=== PATIENT | female | born 1955 | race Caucasian/White ===

== ENCOUNTER 2016-03-04 11:16 | Outpatient (CLI) | payer MEDICARE ==
--- NOTE | 2016-03-04 18:50 | RAD ---
ACUTE ABDOMEN SERIES: Date: 03/04/16 Supine and erect films show no free air beneath the diaphragm. The gas pattern is nonspecific, showi ng no dilated bowel. There do appear to be fluid-filled loops of small bowel present. Numerous pelvi c calcifications are present which are most likely phleboliths. There appears to have been a prior c holecystectomy. Lumbar scoliosis convex right was present. A chest film in the series is compared with the 04/03/09 chest x-ray. Heart is normal in size and th e lungs are clear. Streaking near the cardiac apex may be scarring or fat pad and has been seen befo re. IMPRESSION: Nonspecific abdominal findings. POS: HOME
== END 2016-03-04 11:17 | disposition home or self-care (01) ==
LOC: BURRAD 11:16
PROVIDERS: ATTEND Family Medicine
DX: R10.13 Epigastric pain (principal)
CPT/HCPCS: 74022

== ENCOUNTER 2016-03-04 13:35 | Outpatient (CLI) | payer MEDICARE ==
[2016-03-04 14:41] LABS: ALT (SGPT) 18 U/L (0-55); AST (SGOT) 16 U/L (5-34); Alkaline Phosphatase 71 U/L (40-150); Anion Gap 14 mmol/L (10-20); BUN (Urea Nitrogen) 15 mg/dL (9.8-20.1); Bilirubin, Total 0.5 mg/dL (0.2-1.2); Calc. Creatinine Clearance 0 mL/min (70-130); Calcium 9.1 mg/dL (7.8-10.44); Carbon Dioxide 21 mmol/L (22-29); Chloride 111 mmol/L (98-107); Estimated GFR-MDRD 39; Globulin 2.5 g/dL (2.4-3.5); Lipase 23 U/L (8-78); Protein, Total 6.7 g/dL (6.0-8.3)
== END 2016-03-04 13:36 | disposition home or self-care (01) ==
LOC: HPCALD 13:35
PROVIDERS: ATTEND Family Medicine
DX: R10.13 Epigastric pain (principal)
CPT/HCPCS: 36415; 80053; 83690

== ENCOUNTER 2016-08-04 10:48 | Emergency (ER) | payer MEDICARE ==
[2016-08-04] MEDS ORDERED: Ketorolac Tromethamine 30 MG/ML VIAL ONE (11:22)
[2016-08-04] MEDS ORDERED: Ondansetron HCl/PF 4 MG/2 ML Vial ONE (11:54)
== END 2016-08-04 12:20 | disposition home or self-care (01) ==
LOC: BURERS 10:48
DX: B34.9 Viral infection, unspecified (principal); J44.9 Chronic obstructive pulmonary disease, unspecified; F17.210 Nicotine dependence, cigarettes, uncomplicated; Z79.899 Other long term (current) drug therapy
CPT/HCPCS: 96361; 96374; 96375; J1885; J2405

== ENCOUNTER 2016-08-09 14:35 | Outpatient (CLI) | payer MEDICARE | END 2016-08-09 14:36 | disposition home or self-care (01) | LOC: HPCALD 14:35 | PROVIDERS: ATTEND Family Medicine | DX: N30.01 Acute cystitis with hematuria (principal) | CPT/HCPCS: 36415; 87086 ==

== ENCOUNTER 2016-08-15 14:45 | Outpatient (CLI) | payer MEDICARE ==
--- NOTE | 2016-08-16 07:43 | RAD ---
CHEST TWO VIEWS 08/15/16 Consolidation is present in the anterior basal portion of the right lower lobe consistent with pneum onia. The left lung is clear. The heart is normal in size. There are no large effusions. This is a n ew finding compared to the February 2016 study. IMPRESSION: Right lower lobe opacity most consistent with pneumonia. Repeat chest x-ray to show complete clearin g is mandatory. Code T POS: HOME
== END 2016-08-15 14:46 | disposition home or self-care (01) ==
LOC: BURRAD 14:45
PROVIDERS: ATTEND Family Medicine
DX: R05 Cough (principal); R91.8 Other nonspecific abnormal finding of lung field
CPT/HCPCS: 71020

== ENCOUNTER 2016-08-15 15:28 | Outpatient (CLI) | payer MEDICARE ==
[2016-08-15 15:42] LABS: #Basophils 0.1 thou/uL (0.0-0.2); #Eosinphils 0.2 thou/uL (0.0-0.7); #Lymphocytes 2.4 thou/uL (1.20-3.40); #Monocytes 0.6 thou/uL (0.11-0.59); #Neutrophils 7.9 thou/uL (1.40-6.50); %Basophils 0.8 % (0.0-1.0); %Eosinophils 1.4 % (0.0-10.0); %Lymphocytes 21.3 % (21.0-51.0); %Monocytes 5.4 % (0.0-10.0); %Neutrophils 71.2 % (42.0-75.0); Hemoglobin 12.5 g/dL (12.0-16.0); Mean Corpuscular HGB CONC 33.9 g/dL (32.0-36.0); Mean Corpuscular Volume 85.6 fl (81.0-99.0); Mean Platelet Volume 6.7 fL (7.4-10.4); Platelet Count 484 thou/uL (130-400); RBC Distribution Width 12.1 % (11.5-14.5); Red Blood Cell (RBC) Count 4.31 mill/uL (4.20-5.40); White Blood Cell (WBC) Count 11.1 thou/uL (4.8-10.8)
[2016-08-15 15:51] LABS: MONO NEGATIVE CONTROL ZONE White (Negative) (White); MONO POSITIVE CONTROL Pink Line (Positive) (PINK/RED); Mononucleosis NEGATIVE (NEGATIVE)
[2016-08-15 16:01] LABS: ALT (SGPT) 67 U/L (8-55); AST (SGOT) 26 U/L (5-34); Albumin 3.8 g/dL (3.5-5.0); Alkaline Phosphatase 85 U/L (40-150); Anion Gap 16 mmol/L (10-20); BUN (Urea Nitrogen) 12 mg/dL (9.8-20.1); Bilirubin, Total 0.2 mg/dL (0.2-1.2); Calc. Creatinine Clearance 0 mL/min (70-130); Calcium 9.4 mg/dL (7.8-10.44); Carbon Dioxide 23 mmol/L (22-29); Chloride 109 mmol/L (98-107); Estimated GFR-MDRD 51; Glucose 86 mg/dL (70-105); Potassium 4.2 mmol/L (3.5-5.1); Protein, Total 6.8 g/dL (6.0-8.3); Sodium 144 mmol/L (136-145)
== END 2016-08-15 15:29 | disposition home or self-care (01) ==
LOC: HPCALD 15:28
PROVIDERS: ATTEND Family Medicine
DX: B37.0 Candidal stomatitis (principal); R51 Headache; R11.0 Nausea; K14.0 Glossitis
CPT/HCPCS: 36415; 80053; 82607; 85025; 86308

== ENCOUNTER 2016-09-09 13:49 | Outpatient (CLI) | payer MEDICARE ==
--- NOTE | 2016-09-09 20:10 | RAD ---
CHEST TWO VIEWS 09/09/16 Comparison is made with the prior study of 08/15/16. The patchy rounded opacity in the right lower lobe that was thought to be pneumonia has almost resol milagros. There is a small amount of residual remaining that is best seen on the lateral view along the m ajor fissure. It might be best to get a final followup PA and lateral view in one to two months to a ssure complete clearing. The progress over time has been significant and is encouraging, however. Th ere are no new areas of opacity or concern. No effusions are seen. There is no vascular congestion. The heart size is normal. Faint calcification is seen in the aortic arch. IMPRESSION: Right lower lobe pneumonia, nearly resolved. One more followup in one to two months would be preferr ed. POS: HOME
== END 2016-09-09 13:50 | disposition home or self-care (01) ==
LOC: BURRAD 13:49
PROVIDERS: ATTEND Family Medicine
DX: J18.9 Pneumonia, unspecified organism (principal)
CPT/HCPCS: 71020

== ENCOUNTER 2016-09-12 09:45 | Outpatient (CLI) | payer MEDICARE ==
[2016-09-12 10:45] LABS: #Basophils 0.1 thou/uL (0.0-0.2); #Eosinphils 0.3 thou/uL (0.0-0.7); #Lymphocytes 3.1 thou/uL (1.20-3.40); #Monocytes 0.6 thou/uL (0.11-0.59); #Neutrophils 3.7 thou/uL (1.40-6.50); %Basophils 1.2 % (0.0-1.0); %Eosinophils 3.8 % (0.0-10.0); %Lymphocytes 40.2 % (21.0-51.0); %Monocytes 7.4 % (0.0-10.0); %Neutrophils 47.4 % (42.0-75.0); Hemoglobin 14.3 g/dL (12.0-16.0); Mean Corpuscular HGB CONC 33.9 g/dL (32.0-36.0); Mean Corpuscular Hemoglobin 28.9 pg (27.0-31.0); Mean Corpuscular Volume 85.3 fl (81.0-99.0); Mean Platelet Volume 7.4 fL (7.4-10.4); Platelet Count 181 thou/uL (130-400); RBC Distribution Width 13.1 % (11.5-14.5); Red Blood Cell (RBC) Count 4.94 mill/uL (4.20-5.40); White Blood Cell (WBC) Count 7.7 thou/uL (4.8-10.8)
[2016-09-12 11:01] LABS: ALT (SGPT) 25 U/L (8-55); AST (SGOT) 19 U/L (5-34); Albumin 4.3 g/dL (3.5-5.0); Alkaline Phosphatase 85 U/L (40-150); Bilirubin, Direct 0.2 mg/dL (0.1-0.3); Bilirubin, Total 0.4 mg/dL (0.2-1.2); Protein, Total 7.2 g/dL (6.0-8.3)
== END 2016-09-12 09:46 ==
LOC: HPCALD 09:45
PROVIDERS: ATTEND Family Medicine
DX: R74.0 Nonspecific elevation of levels of transaminase and lactic acid dehydrogenase [LDH] (principal); D72.829 Elevated white blood cell count, unspecified; R63.5 Abnormal weight gain
CPT/HCPCS: 36415; 80076; 84443; 85025

== ENCOUNTER 2016-10-07 13:54 | Outpatient (CLI) | payer MEDICARE ==
--- NOTE | 2016-10-07 20:24 | RAD ---
CHEST TWO VIEWS 10/07/16 Comparison is made with the 09/09/16 study. The heart is normal in size and the lungs are currently clear. No acute infiltrate or effusion was i ndicated. There is a little residual streaking along the major fissure on the lateral view that is i mproved since the prior study. The trachea is midline. IMPRESSION: No acute findings. Improvement of streaking along the major fissure. POS: HOME
== END 2016-10-07 13:55 | disposition home or self-care (01) ==
LOC: BURRAD 13:54
PROVIDERS: ATTEND Family Medicine
DX: J18.9 Pneumonia, unspecified organism (principal)
CPT/HCPCS: 71020

== ENCOUNTER 2016-11-24 14:17 | Emergency (ER) | payer MEDICARE | END 2016-11-24 14:47 | disposition home or self-care (01) | LOC: BURERS 14:17 | DX: K03.81 Cracked tooth (principal); K02.9 Dental caries, unspecified; M81.0 Age-related osteoporosis without current pathological fracture; M51.06 Intervertebral disc disorders with myelopathy, lumbar region; J44.9 Chronic obstructive pulmonary disease, unspecified; M06.9 Rheumatoid arthritis, unspecified; F31.9 Bipolar disorder, unspecified; E53.9 Vitamin B deficiency, unspecified; F17.210 Nicotine dependence, cigarettes, uncomplicated | CPT/HCPCS: 99282 ==

== ENCOUNTER 2018-05-17 10:39 | Outpatient (CLI) | payer MEDICARE ==
--- NOTE | 2018-05-17 21:41 | RAD ---
CHEST TWO VIEWS: 05/17/18 Comparison is made with the 04/05/18 study from [facility]. COPD is present with flattening of the diaphragm as usual. No lobar consolidation or effusion was see n. A little streaking near the cardiac apex is probably just some lingular scarring. IMPRESSION: COPD with no acute finding. POS: HOME
== END 2018-05-17 10:40 | disposition home or self-care (01) ==
LOC: BURRAD 10:39
PROVIDERS: ATTEND Nurse Practitioner Family
DX: J44.1 Chronic obstructive pulmonary disease with (acute) exacerbation (principal)
CPT/HCPCS: 71046

== ENCOUNTER 2018-10-11 09:28 | Outpatient (CLI) | payer MEDICARE ==
--- NOTE | 2018-10-11 21:07 | CT ---
CT OF THE CHEST WITHOUT CONTRAST: 10/11/18 COMPARISON: Comparison was made with a prior CT angio of the chest from 12/13/13. While this exam was ordered with IV contrast, her extremely low GFR precluded it from being given, th us, this was a noncontrast scan. I do not feel anything significant was lost by doing so. Emphysematous changes are present throughout the lungs bilaterally consisting of small blebs and bull ae. These were present in 2013. Changes over the interval are only minimal. There was no evidence of mass in the lungs themselves or the mediastinum. No effusions are present. There is no sign of medias tinal adenopathy. A small hiatal hernia was noted. The visible portions of the upper abdomen were unremarkable within t he limitations of a noncontrast study. No adrenal masses were seen. IMPRESSION: Diffuse emphysematous changes throughout the lungs. No focal pathology of concern was appreciated. POS: HOME
--- NOTE | 2018-10-15 13:10 | ULT ---
ABDOMINAL ULTRASOUND: Date: 10/11/18 Note: This exam was not submitted for reading to me until 10/15/18 due to technical factors. Ultrasonography of the abdomen shows the liver to be perhaps upper normal in size, measuring 17 cm in oblique sagittal dimension. No space-occupying disease or dilated ducts were seen. A tiny 7 mm cyst is seen in the left lobe, which was present on a prior CT scan. It has not really changed over time. The gallbladder has been surgically removed. The common bile duct is 8-9 mm in caliber, which is norm al for a post cholecystectomy patient. No pancreatic abnormality seen. Aorta and inferior vena cava u nremarkable. The spleen is normal in size. The right kidney was slightly smaller than the left, measuring 7.8 cm in length, versus 9.2 cm on the left. No mass, hydronephrosis, or other focal pathology was seen in either kidney, however. Cortex w as normal in each kidney. IMPRESSION: Slightly prominent hepatic size, but no acute findings. POS: HOME
== END 2018-10-11 09:29 | disposition home or self-care (01) ==
LOC: BURCT 09:28
PROVIDERS: ATTEND Nurse Practitioner Family
DX: R10.12 Left upper quadrant pain (principal); F17.200 Nicotine dependence, unspecified, uncomplicated
CPT/HCPCS: 71250; 76700

== ENCOUNTER 2018-12-28 16:49 | Inpatient (IN) | payer MEDICARE ==
[2018-12-28] MEDS ORDERED: methylPREDNISolone Sod Succ/PF 125 MG/2 ML VIAL ONE ×2 (17:13→17:20)
--- NOTE | 2018-12-28 17:16 | RAD ---
EXAM: CHEST ONE VIEW HISTORY: Dyspnea COMPARISON: 04/05/2018 FINDINGS: The cardiac silhouette and pulmonary vasculature is within normal limits. Linear densities are seen a t the left lung base probably related to atelectasis. However, developing area of pneumonitis cannot be entirely excluded. There is no consolidation or pleural fluid identified. The right lung is clear. Postsurgical changes lower cervical spine are noted. Vascular calcifications are seen in the thoracic aorta. IMPRESSION: Linear densities left lung base most likely related to atelectasis. However, developing infiltrate/pn eumonitis cannot be excluded. Follow-up chest x-ray is recommended as clinically indicated.
[2018-12-28 17:29] LABS: ALT (SGPT) 16 U/L (8-55); AST (SGOT) 19 U/L (5-34); Alkaline Phosphatase 82 U/L (40-110); Anion Gap 15 mmol/L (10-20); BUN (Urea Nitrogen) 13 mg/dL (9.8-20.1); Bilirubin, Total 0.4 mg/dL (0.2-1.2); Calc. Creatinine Clearance 0 mL/min (70-130); Calcium 9.4 mg/dL (7.8-10.44); Carbon Dioxide 24 mmol/L (23-31); Chloride 107 mmol/L (98-107); Estimated GFR-MDRD 43; Globulin 3.4 g/dL (2.4-3.5); Glucose 102 mg/dL (80-115); Potassium 3.4 mmol/L (3.5-5.1); Protein, Total 7.4 g/dL (6.0-8.3); Sodium 143 mmol/L (136-145)
[2018-12-28 17:36] LABS: #Basophils 0.1 thou/uL (0.0-0.2); #Eosinphils 0.1 thou/uL (0.0-0.7); #Lymphocytes 1.2 thou/uL (1.20-3.40); #Monocytes 0.9 thou/uL (0.11-0.59); #Neutrophils 11.4 thou/uL (1.40-6.50); %Basophils 0.7 % (0.0-1.0); %Eosinophils 0.5 % (0.0-10.0); %Lymphocytes 8.6 % (21.0-51.0); %Monocytes 6.9 % (0.0-10.0); %Neutrophils 83.3 % (42.0-75.0); Hemoglobin 12.7 g/dL (12.0-16.0); Mean Corpuscular HGB CONC 32.2 g/dL (32.0-36.0); Mean Corpuscular Hemoglobin 27.9 pg (27.0-31.0); Mean Corpuscular Volume 86.8 fL (78.0-98.0); Mean Platelet Volume 9.5 fL (7.4-10.4); Platelet Count 230 thou/uL (130-400); RBC Distribution Width 13.3 % (11.5-14.5); Red Blood Cell (RBC) Count 4.55 mill/uL (4.20-5.40); White Blood Cell (WBC) Count 13.7 thou/uL (4.8-10.8)
[2018-12-28] MEDS ORDERED: cefTRIAXone\\ROCEPHIN 1 GM VIAL ONE (17:48)
[2018-12-28] MEDS ORDERED: Acetaminophen 325 MG TAB PO PRN (19:14)
[2018-12-28] MEDS ORDERED: Ondansetron PF 4 MG/2 ML Vial IVP PRN (19:14)
[2018-12-28] MEDS ORDERED: Bacteriostatic Water 30 ML VIAL FS PRN (19:15)
[2018-12-28] MEDS: traMADol HCl 50 MG TAB PO PRN (20:26)
[2018-12-28] MEDS: Benzonatate 100 MG CAP PO SCH (20:28)
[2018-12-28] MEDS ORDERED: traMADol HCl 50 MG TAB PO PRN (21:23)
[2018-12-28] MEDS ORDERED: Mometasone/Formoterol 60 PUFF AER INH PRN (21:23)
[2018-12-28] MEDS ORDERED: clonazePAM 1 MG TAB PO SCH (22:15)
[2018-12-28] MEDS ORDERED: Mirtazapine 15 MG TAB PO SCH (22:30)
[2018-12-28] MEDS ORDERED: Baclofen 10 MG TAB PO SCH (22:30)
[2018-12-29] MEDS: traMADol HCl 50 MG TAB PO PRN ×2 (05:14→12:54)
[2018-12-29 05:21] LABS: #Lymphocytes 0.7 thou/uL (1.20-3.40); #Monocytes 0.3 thou/uL (0.11-0.59); #Neutrophils 10.2 thou/uL (1.40-6.50); %Basophils 0.1 % (0.0-1.0); %Lymphocytes 6.5 % (21.0-51.0); %Monocytes 2.3 % (0.0-10.0); Hemoglobin 11.1 g/dL (12.0-16.0); Mean Corpuscular HGB CONC 31.5 g/dL (32.0-36.0); Mean Corpuscular Hemoglobin 27.1 pg (27.0-31.0); Mean Corpuscular Volume 86.1 fL (78.0-98.0); Mean Platelet Volume 8.4 fL (7.4-10.4); Platelet Count 208 thou/uL (130-400); RBC Distribution Width 13.2 % (11.5-14.5); Red Blood Cell (RBC) Count 4.11 mill/uL (4.20-5.40); White Blood Cell (WBC) Count 11.2 thou/uL (4.8-10.8)
[2018-12-29 05:34] LABS: ALT (SGPT) 14 U/L (8-55); AST (SGOT) 15 U/L (5-34); Albumin 3.4 g/dL (3.4-4.8); Alkaline Phosphatase 75 U/L (40-110); Anion Gap 12 mmol/L (10-20); BUN (Urea Nitrogen) 15 mg/dL (9.8-20.1); Bilirubin, Total 0.2 mg/dL (0.2-1.2); Calc. Creatinine Clearance 62 mL/min (70-130); Carbon Dioxide 22 mmol/L (23-31); Chloride 111 mmol/L (98-107); Estimated GFR-MDRD 51; Glucose 139 mg/dL (80-115); Potassium 3.7 mmol/L (3.5-5.1); Protein, Total 6.4 g/dL (6.0-8.3); Sodium 141 mmol/L (136-145)
[2018-12-29] MEDS ORDERED: Benzonatate 100 MG CAP PO SCH (09:00)
[2018-12-29] MEDS ORDERED: methylPREDNISolone Sod Succ/PF 125 MG/2 ML VIAL IVP SCH (09:00)
[2018-12-29] MEDS ORDERED: Famotidine 20 MG TAB PO SCH (09:00)
[2018-12-29] MEDS: methylPREDNISolone Sod Succ/PF 125 MG/2 ML VIAL IVP SCH (09:10)
[2018-12-29] MEDS: Benzonatate 100 MG CAP PO SCH ×3 (09:18→21:30)
[2018-12-29] MEDS: Saccharomyces boulardii 250 MG CAP PO SCH (09:18)
[2018-12-29] MEDS: cefTRIAXone\\ROCEPHIN 1 GM in Sodium Chloride 0.9% 100 ML IVPB SCH (09:28)
[2018-12-29] MEDS: Azithromycin 500 MG in Sodium Chloride 0.9% 250 ML 250 ML IVPB SCH (10:58)
[2018-12-29] MEDS: Nicotine 21 MG PATCH TD SCH (10:59)
[2018-12-29] MEDS: Guaifenesin DM 100-10/5 ML UDCUP PO PRN ×2 (12:46→17:30)
[2018-12-29] MEDS: Mometasone/Formoterol 60 PUFF AER INH SCH (12:47)
[2018-12-29] MEDS: clonazePAM 1 MG TAB PO SCH (21:29)
[2018-12-29] MEDS: Mirtazapine 15 MG TAB PO SCH (21:30)
[2018-12-29] MEDS: Baclofen 10 MG TAB PO SCH (21:31)
[2018-12-30] MEDS: Guaifenesin DM 100-10/5 ML UDCUP PO PRN ×3 (01:09→20:59)
[2018-12-30 05:37] LABS: #Basophils 0.1 thou/uL (0.0-0.2); #Monocytes 0.7 thou/uL (0.11-0.59); #Neutrophils 9.6 thou/uL (1.40-6.50); %Basophils 0.5 % (0.0-1.0); %Eosinophils 0.1 % (0.0-10.0); %Lymphocytes 15.9 % (21.0-51.0); %Monocytes 5.8 % (0.0-10.0); %Neutrophils 77.7 % (42.0-75.0); Hemoglobin 10.3 g/dL (12.0-16.0); Mean Corpuscular HGB CONC 31.2 g/dL (32.0-36.0); Mean Corpuscular Hemoglobin 27.1 pg (27.0-31.0); Mean Corpuscular Volume 86.7 fL (78.0-98.0); Mean Platelet Volume 7.8 fL (7.4-10.4); Platelet Count 234 thou/uL (130-400); RBC Distribution Width 13.1 % (11.5-14.5); Red Blood Cell (RBC) Count 3.82 mill/uL (4.20-5.40); White Blood Cell (WBC) Count 12.4 thou/uL (4.8-10.8)
[2018-12-30 05:48] LABS: ALT (SGPT) 16 U/L (8-55); AST (SGOT) 14 U/L (5-34); Albumin 3.2 g/dL (3.4-4.8); Alkaline Phosphatase 65 U/L (40-110); Anion Gap 11 mmol/L (10-20); BUN (Urea Nitrogen) 18 mg/dL (9.8-20.1); Bilirubin, Total Less than 0.2 mg/dL (0.2-1.2); Calc. Creatinine Clearance 59 mL/min (70-130); Calcium 8.7 mg/dL (7.8-10.44); Carbon Dioxide 25 mmol/L (23-31); Chloride 112 mmol/L (98-107); Estimated GFR-MDRD 49; Globulin 2.7 g/dL (2.4-3.5); Glucose 87 mg/dL (80-115); Potassium 3.3 mmol/L (3.5-5.1); Protein, Total 5.9 g/dL (6.0-8.3); Sodium 145 mmol/L (136-145)
[2018-12-30] MEDS: Benzonatate 100 MG CAP PO SCH ×4 (06:25→21:06)
[2018-12-30] MEDS: methylPREDNISolone Sod Succ/PF 125 MG/2 ML VIAL IVP SCH (08:20)
[2018-12-30] MEDS: traMADol HCl 50 MG TAB PO PRN ×2 (08:28→20:57)
[2018-12-30] MEDS: cefTRIAXone\\ROCEPHIN 1 GM in Sodium Chloride 0.9% 100 ML IVPB SCH (08:32)
[2018-12-30] MEDS: Saccharomyces boulardii 250 MG CAP PO SCH (08:32)
[2018-12-30] MEDS: Nicotine 21 MG PATCH TD SCH (10:32)
[2018-12-30] MEDS: Azithromycin 500 MG in Sodium Chloride 0.9% 250 ML 250 ML IVPB SCH (10:32)
[2018-12-30] MEDS: Mometasone/Formoterol 60 PUFF AER INH SCH ×2 (10:39→21:01)
[2018-12-30] MEDS: Ondansetron ODT 4 MG TAB SL PRN (11:54)
--- NOTE | 2018-12-30 14:25 | RAD ---
RADIOGRAPH CHEST 2 VIEW: DATE: 12/30/2018 HISTORY: 63-year-old female with "pneumonia." Dyspnea. FINDINGS: There is hyperinflation of the lungs, consistent with COPD. There is no evidence of airspace density, pulmonary edema, cardiomegaly, pleural effusion, or pneumothorax. IMPRESSION: 1) No acute cardiopulmonary findings. 2) emphysema.
--- NOTE | 2018-12-30 16:23 | HP ---
CHIEF COMPLAINT: Shortness of breath with cough. HISTORY OF PRESENT ILLNESS: The patient is a 63-year-old white female with a history of COPD, non-oxygen dependent, but continues to smoke, who presents to emergency room on day of admission with 3 to 4 days history of progressive shortness of breath with wheezing, cough, malaise, and decreased appetite. The patient reports for 24 hours prior to presentation to the emergency room, she began developing increasing fevers up to 101.2 with inability to ambulate or talk secondary to shortness of breath with recurrent cough. She said that the wheezing got worse. She took her nebulizers as prescribed, but continued to have progressive worsening of symptoms and thus presents to the emergency room. She says that cough is constant, mainly dry, occasionally productive yellow dark sputum, associated chest pain with the cough only, and had never been hospitalized for COPD exacerbations in the past. PAST MEDICAL HISTORY: The patient reports a history of fibromyalgia with chronic pain, history of lumbar disk disease with myelopathy. The patient reports a history of COPD and a history of osteoporosis. The patient believes she has a history of hepatitis B diagnosed in the past. The patient has a history of depression, bipolar type 1, currently controlled with current medications. PAST SURGICAL HISTORY: Includes cholecystectomy, hysterectomy, history of orthopedic surgery to the left wrist, and a laparoscopy in 2017. The patient has a history of back surgery. FAMILY HISTORY: Positive for a father, who of end-stage emphysema. SOCIAL HISTORY: The patient reports a half-a-pack to 1 pack smoking per day. Denies any significant alcohol or drug use. She is normally independent in all activities of daily living. REVIEW OF SYSTEMS: The patient reports some sweats with her recent increased shortness of breath and cough for the last 3 to 4 days. She has a sore throat secondary to the cough. Denies any visual changes. Denies any vomiting. Has had decreased appetite with some loose stools in the last couple of days. Denies any dysuria, hematuria, or change in urinary frequency. The patient has chronic back pain, which is stable. She also reports diffuse joint aches and pains consistent with her fibromyalgia. This is currently at baseline. The patient denies any focal weakness, numbness, or paresthesias. The patient denies any recent significant weight loss or weight gain. No recent rashes reported by the patient. The patient reports depression is currently controlled and stable. PHYSICAL EXAMINATION: GENERAL: White female, in obvious shortness of breath secondary to wheezing and cough. VITAL SIGNS: Temperature was 99.6, O2 saturation was 93% on 2 L nasal cannula, pulse was 98, respiratory rate was 30, blood pressure was 104/76. HEENT: Atraumatic, normocephalic. Extraocular movements are intact. Pupils are equal, round, reactive to light and accommodation. Oropharynx; mucous membranes are moist. NECK: Supple. No masses palpated. CHEST: Decreased breath sounds bilaterally with expiratory wheezes, worse on the left than right lung field. HEART: rhythm. ABDOMEN: Soft, nontender, nondistended. No masses palpated. EXTREMITIES: No cyanosis, clubbing, or edema. LABORATORY AND DIAGNOSTIC DATA: EKG showed no significant findings. Chest x-ray showed infiltrate in the left lower lobe consistent with pneumonia. Labs were significant for an elevated white blood count 13,200. The patient's lactate was normal. ASSESSMENT AND PLAN: 1. Pneumonia, left lower lobe. The patient is at high risk for worsening with her COPD. Currently, she is oxygen dependent. She had an elevated white blood count, anorexia with decreased appetite, and reports fevers that are greater than 101 in the last 24 hours. The patient meets inpatient criteria for IV antibiotics, frequent neb treatments, and oxygen per nasal cannula. We will continue the patient on Rocephin. We will add Zithromax. Continue IV steroids and neb treatments as appropriate. 2. Chronic obstructive pulmonary disease exacerbation secondary to #1 above. We will treat as above with steroids, frequent neb treatments plus albuterol for breakthrough wheezing and continue to assess. Strongly recommend smoking cessation. We will start the patient on nicotine patch. 3. Fibromyalgia. We will continue the patient on current medications. 4. Bipolar 1 depression. Continue the patient on her antidepressants. 5. History of smoking. Again, smoking cessation was recommended. The patient will start her on a nicotine patch. 6. Code status: The patient wishes to be full code. Job ID: [id number]
[2018-12-30] MEDS: Mirtazapine 15 MG TAB PO SCH (20:55)
[2018-12-30] MEDS: clonazePAM 1 MG TAB PO SCH (20:55)
[2018-12-30] MEDS: Baclofen 10 MG TAB PO SCH (20:56)
[2018-12-30] MEDS: Albuterol Sulfate 1.25 MG/3 ML NEB NEB PRN (23:33)
[2018-12-31] MEDS: Guaifenesin DM 100-10/5 ML UDCUP PO PRN (01:41)
[2018-12-31 05:42] VITALS: BMI 27.6
[2018-12-31] MEDS: Benzonatate 100 MG CAP PO SCH ×3 (05:49→21:24)
[2018-12-31] MEDS: traMADol HCl 50 MG TAB PO PRN ×2 (09:05→21:30)
[2018-12-31] MEDS: methylPREDNISolone Sod Succ/PF 125 MG/2 ML VIAL IVP SCH (09:08)
[2018-12-31] MEDS: cefTRIAXone\\ROCEPHIN 1 GM in Sodium Chloride 0.9% 100 ML IVPB SCH (09:08)
[2018-12-31] MEDS: Saccharomyces boulardii 250 MG CAP PO SCH (09:09)
[2018-12-31] MEDS: Albuterol Sulfate 1.25 MG/3 ML NEB NEB PRN (09:56)
[2018-12-31] MEDS: Mometasone/Formoterol 60 PUFF AER INH SCH (09:57)
[2018-12-31] MEDS: Nicotine 21 MG PATCH TD SCH (10:58)
[2018-12-31] MEDS: Azithromycin 500 MG in Sodium Chloride 0.9% 250 ML 250 ML IVPB SCH (10:58)
[2018-12-31] MEDS: Ondansetron ODT 4 MG TAB SL PRN (11:27)
[2018-12-31] MEDS: Mirtazapine 15 MG TAB PO SCH (21:24)
[2018-12-31] MEDS: clonazePAM 1 MG TAB PO SCH (21:25)
[2018-12-31] MEDS: Baclofen 10 MG TAB PO SCH (21:25)
[2018-12-31] MEDS: guaiFENesin ER 600 MG TAB PO SCH (21:26)
[2019-01-01] MEDS: Albuterol Sulfate 1.25 MG/3 ML NEB NEB PRN (04:08)
[2019-01-01 05:33] LABS: #Lymphocytes 2.4 thou/uL (1.20-3.40); #Monocytes 0.6 thou/uL (0.11-0.59); #Neutrophils 4.3 thou/uL (1.40-6.50); %Basophils 0.7 % (0.0-1.0); %Eosinophils 0.5 % (0.0-10.0); %Lymphocytes 32.5 % (21.0-51.0); %Monocytes 8.3 % (0.0-10.0); %Neutrophils 58.1 % (42.0-75.0); Hemoglobin 10.8 g/dL (12.0-16.0); Mean Corpuscular HGB CONC 30.8 g/dL (32.0-36.0); Mean Corpuscular Volume 87.7 fL (78.0-98.0); Mean Platelet Volume 7.2 fL (7.4-10.4); Platelet Count 284 thou/uL (130-400); RBC Distribution Width 13.5 % (11.5-14.5); Red Blood Cell (RBC) Count 4.01 mill/uL (4.20-5.40); White Blood Cell (WBC) Count 7.4 thou/uL (4.8-10.8)
[2019-01-01 05:45] LABS: Anion Gap 14 mmol/L (10-20); BUN (Urea Nitrogen) 17 mg/dL (9.8-20.1); Calc. Creatinine Clearance 61 mL/min (70-130); Carbon Dioxide 24 mmol/L (23-31); Chloride 109 mmol/L (98-107); Estimated GFR-MDRD 46; Glucose 108 mg/dL (80-115); Potassium 3.1 mmol/L (3.5-5.1); Sodium 144 mmol/L (136-145)
[2019-01-01] MEDS: traMADol HCl 50 MG TAB PO PRN ×3 (06:10→18:52)
[2019-01-01] MEDS: Benzonatate 100 MG CAP PO SCH ×2 (06:10→14:36)
[2019-01-01] MEDS ORDERED: predniSONE 20 MG TAB PO SCH (08:00)
[2019-01-01] MEDS: cefTRIAXone\\ROCEPHIN 1 GM in Sodium Chloride 0.9% 100 ML IVPB SCH (08:11)
[2019-01-01] MEDS: guaiFENesin ER 600 MG TAB PO SCH ×2 (08:14→18:51)
[2019-01-01] MEDS: Saccharomyces boulardii 250 MG CAP PO SCH (08:16)
[2019-01-01] MEDS: Azithromycin 500 MG in Sodium Chloride 0.9% 250 ML 250 ML IVPB SCH (10:09)
[2019-01-01] MEDS: Mometasone/Formoterol 60 PUFF AER INH SCH (10:16)
[2019-01-01] MEDS: Nicotine 21 MG PATCH TD SCH (10:19)
[2019-01-01] MEDS: Ondansetron ODT 4 MG TAB SL PRN (10:54)
[2019-01-01 17:25] VITALS: BP 106/73; TEMP 98.8
--- NOTE | 2019-01-01 20:01 | DIS ---
DATE OF ADMISSION: 12/28/2018 DATE OF DISCHARGE: 01/01/2019 ADMISSION DIAGNOSES: 1. Chronic obstructive pulmonary disease exacerbation with hypoxia without hypercapnia. 2. Community-acquired pneumonia, left lung base. 3. Hypokalemia. 4. Nicotine dependence. 5. History of bipolar disorder. 6. History of fibromyalgia. DISCHARGE DIAGNOSES: 1. Chronic obstructive pulmonary disease exacerbation with hypoxia without hypercapnia. 2. Community-acquired pneumonia, left lung base. 3. Hypokalemia. 4. Nicotine dependence. 5. History of bipolar disorder. 6. History of fibromyalgia. ATTENDING PHYSICIAN: Dr. Lisa Latham, admitted the patient on December 28 and cared for her as the attending on-call until I picked up care on the morning of December 31 as I am her PCP and cared for her throughout the rest of the hospitalization. PROCEDURES: 1. Chest x-ray, December 28, shows linear densities in left lung base, most likely related to atelectasis. However, developing infiltrate, pneumonitis cannot be excluded. 2. Chest x-ray from December 30, 2018, shows no acute cardiopulmonary findings and emphysema. 3. Blood culture x2 negative at 48 hours, and influenza A and B negative. HISTORY AND PHYSICAL: Please see dictated report from Dr. Lisa Latham from the date of admission. HOSPITAL COURSE: Ms. Broderick is a 63-year-old female with past medical history of COPD and nicotine dependence, who was admitted with hypoxia and complaints of persistent cough. She was routinely treated with a combination of Rocephin and Zithromax to cover for possible left lower lobe pneumonia, supportive O2, nebulizer treatments were scheduled 4 times a day with albuterol as needed and O2 was given supportively. She was started on IV Solu-Medrol and this was weaned on her visit to oral prednisone. Gradually the hypoxia is resolved with her treatment and Mucinex was added prior to her discharge, which has significantly improved her ability to expectorate her sputum. She has completed the Zithromax therapy, but has a couple of more days of cephalosporin therapy, so we will send cefdinir for her to complete. She has an old nebulizer unit at home that needs to be replaced, but has nebulizer medicine for it. I have ordered one, Rx written for it. The patient with hypokalemia, that was presumptively secondary to her neb treatments. However, this did persist during her hospitalization, and I am starting her on potassium at discharge. We will check a basic metabolic profile when she comes in for followup in the office in approximately 1 week. The patient with a long smoking history. 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 She really would like to quit on her own if she can and has been advised and counseled regarding the adverse sequela of continued smoking including increase in mortality rate in the context of COPD. The patient with history of chronic fibromyalgia and this was controlled. She will be calling in the morning to the clinic to get a short-term refill on her tramadol as I could not send that over from the hospital this evening as she is currently out. DISPOSITION: Discharged to home. CONDITION: Good. MEDICATIONS: 1. DuoNeb 3 mL nebulized q.i.d. p.r.n. 2. Benzonatate 200 mg p.o. t.i.d. 3. Probiotic one p.o. daily. 4. Baclofen 20 mg p.o. at bedtime. 5. Clonazepam 1 p.o. at bedtime. 6. Tramadol 100 mg p.o. q.6 hours p.r.n. 7. Sertraline 100 mg p.o. daily. 8. Seroquel XR 300 mg two p.o. at bedtime. 9. Protonix 40 mg p.o. daily. 10. Remeron 45 mg p.o. at bedtime. 11. Breo Ellipta one inhalation daily. 12. Prednisone 20 mg taper three p.o. daily x3 days, then two p.o. daily x4 days, then one p.o. daily x3 days, then half p.o. daily x3 days, then stop. 13. Mucinex ER 1200 mg p.o. b.i.d. 14. K-Dur 20 mEq p.o. daily. 15. Cefdinir 300 mg p.o. b.i.d. x2 days, #4. FOLLOWUP: Follow up with Dr. Radha Bishop, PCP, in approximately 7 days. Job ID: [id number]
[2019-01-01] MEDS ORDERED: QUETIAPINE 300 MG PO SCH (21:00)
[2019-01-01] MEDS ORDERED: [UNRECOGNIZED DRUG - OTHER] PO SCH (21:00)
[2019-01-01] MEDS ORDERED: Mometasone/Formoterol 60 PUFF AER INH SCH (21:00)
--- NOTE | 2019-01-03 05:31 | PQF ---
[employer] [place] Ramesh NIKO MERCHANT DO [id number] CLINICAL DOCUMENTATION CLARIFICATION FORM: POST DISCHARGE Addendum to original discharge summary date: ____ Late entry note date: __ DATE:01/03/2019 ATTN: NIKO MERCHANT DO Please exercise your independent, professional judgment in responding to the clarification form. Clinical indicators are provided on the bottom of this form for your review Please check appropriate box(s): [ ] Acute Respiratory Failure: [ ] with Hypoxia[ ] with Hypercapnia [ ] Acute On Chronic Respiratory Failure: [ ] with Hypoxia [ ] with Hypercapnia [ ] Acute Respiratory Failure due to: (etiology) [ ] ARDS (Acute Respiratory Distress Syndrome) [ ] Chronic Respiratory Failure only [ ] with Hypoxia [ ] with Hypercapnia [ ] Hypoxia [ ] Other diagnosis [ ] Unable to determine In addition, please specify: Present on Admission (POA): [ ] Yes [ ] No [ ] Unable to determine For continuity of documentation, please document condition throughout progress notes and discharge summary. Thank You. CLINICAL INDICATORS - SIGNS / SYMPTOMS / LABS Progressive SOB with wheezing, cough, malaise - Documented in H&P on 12/28 by Noa Feliz MD RR 30 - Documented in ED notes pg#2 O2 saturation 88% on room air - Documented in ED notes pg#8 Hypoxia - Documented in DS on 12/28 by NIKO MERCHANT DO RISK FACTORS Former smoker - Documented in ED notes pg#6 Hx of COPD - Documented in ED notes pg#6 Pneumonia left lower lobe - Documented in H&P on 12/28 by Noa Feliz MD COPD exacerbation -Documented in H&P on 12/28 by Noa Feliz MD TREATMENTS: Treated with steroids, frequent neb,plus albuterol - Documented in H&P on 12/28 by Noa Feliz MD Smoking cessation Nasal Cannula [employer] (This form is maintained as a part of the permanent medical record) 2014 [employer]. All Rights Reserved Sang [email or web address] [not provided] MTDD
== END 2019-01-01 18:50 | disposition home or self-care (01) | DRG 190 ==
LOC: BURERS 16:49 → BURMED 18:18 → UNDOADMOB 18:18 → BURMED 23:40 → OBSVTOIN 23:53 → INTOOBSV 23:53
PROVIDERS: ADMIT Family Medicine; ATTEND Family Medicine
DX: J44.1 Chronic obstructive pulmonary disease with (acute) exacerbation (principal); J18.9 Pneumonia, unspecified organism; J98.11 Atelectasis; M51.06 Intervertebral disc disorders with myelopathy, lumbar region; J44.0 Chronic obstructive pulmonary disease with (acute) lower respiratory infection; F17.210 Nicotine dependence, cigarettes, uncomplicated; G89.29 Other chronic pain; M79.7 Fibromyalgia; F31.9 Bipolar disorder, unspecified; R63.0 Anorexia; E87.6 Hypokalemia; R09.02 Hypoxemia; Z90.49 Acquired absence of other specified parts of digestive tract; Z90.710 Acquired absence of both cervix and uterus; Z68.27 Body mass index [BMI] 27.0-27.9, adult; E53.9 Vitamin B deficiency, unspecified
CPT/HCPCS: 36415; 71045; 71046; 80048; 80053; 83605; 83880; 84484; 85025; 87040; 87804; 93005; 94664; 96361; 96374; 96375; J0456; J0696; J2930; J3490; J7050; J7512; J7620; Q0162

== ENCOUNTER 2019-03-03 13:14 | Inpatient (IN) | payer MEDICARE ==
[2019-03-03] MEDS ORDERED: Ondansetron PF 4 MG/2 ML Vial ONE (13:57)
[2019-03-03] MEDS ORDERED: methylPREDNISolone Sod Succ/PF 125 MG/2 ML VIAL ONE (13:57)
[2019-03-03 14:10] LABS: Anion Gap 15 mmol/L (10-20); BUN (Urea Nitrogen) 15 mg/dL (9.8-20.1); Calc. Creatinine Clearance 0 mL/min (70-130); Calcium 9.2 mg/dL (7.8-10.44); Carbon Dioxide 21 mmol/L (23-31); Chloride 105 mmol/L (98-107); Estimated GFR-MDRD 44; Glucose 109 mg/dL (80-115); Potassium 3.1 mmol/L (3.5-5.1); Sodium 138 mmol/L (136-145)
[2019-03-03 14:15] LABS: Band 3 % (5-11); Hemoglobin 12.5 g/dL (12.0-16.0); Lymphocytes 21 % (21-51); MDiff Complete? YES; Mean Corpuscular HGB CONC 32.1 g/dL (32.0-36.0); Mean Platelet Volume 7.7 fL (7.4-10.4); Monocytes 5 % (0-10); Neutrophil 71 % (42-75); Platelet Count 229 thou/uL (130-400); RBC Distribution Width 14.2 % (11.5-14.5); Red Blood Cell (RBC) Count 4.64 mill/uL (4.20-5.40); White Blood Cell (WBC) Count 15.9 thou/uL (4.8-10.8)
[2019-03-03] MEDS ORDERED: Sodium Chloride 0.9% 100 ML ONE (14:24)
[2019-03-03] MEDS ORDERED: Magnesium 2 GM/50 ML BAG (IN WATER) ONE (14:24)
[2019-03-03] MEDS ORDERED: cefTRIAXone\\ROCEPHIN 2 GM VIAL ONE (14:24)
[2019-03-03] MEDS ORDERED: Albuterol Sulfate 1.25 MG/3 ML NEB ONE (14:24)
[2019-03-03] MEDS ORDERED: Azithromycin 250 MG TAB ONE (15:20)
[2019-03-03] MEDS ORDERED: Ondansetron ODT 4 MG TAB ONE (15:20)
[2019-03-03] MEDS ORDERED: Acetaminophen 325 MG TAB PO PRN (17:10)
[2019-03-03] MEDS ORDERED: Ondansetron PF 4 MG/2 ML Vial IVP PRN (17:10)
[2019-03-03] MEDS ORDERED: HYDROcodone/Acetaminophen 5/325 mg Tablet PO PRN (17:10)
[2019-03-03] MEDS ORDERED: Ondansetron ODT 4 MG TAB SL PRN (17:10)
[2019-03-03] MEDS ORDERED: Albuterol Sulfate 2.5 mg/3 ml Neb NEB PRN (17:12)
[2019-03-03] MEDS: HYDROcodone/Acetaminophen 5/325 mg Tablet PO PRN ×2 (17:32→23:24)
[2019-03-03 17:42] VITALS: BMI 26.6
[2019-03-03] MEDS: Dextrose 5 %-0.45 % NaCl 1,000 ML IV SCH (17:51)
[2019-03-03] MEDS ORDERED: Enoxaparin Sodium 40 MG/0.4 ML SYRINGE SC SCH (18:30)
[2019-03-03] MEDS: Nystatin 500,000 UNITS/5 ML UDCUP SSW SCH (20:35)
[2019-03-03] MEDS ORDERED: Vancomycin HCl 1.25 GM in Sodium Chloride 0.9% 250 ML 250 ML IVPB SCH (21:00)
[2019-03-03] MEDS: methylPREDNISolone Sod Succ 40 MG VIAL IVP SCH (21:52)
[2019-03-03] MEDS: Vancomycin HCl 500 MG in Sodium Chloride 0.9% 100 ML IVPB SCH (21:58)
[2019-03-03] MEDS: Vancomycin HCl 750 MG in Sodium Chloride 0.9% 250 ML 250 ML IVPB SCH (21:59)
[2019-03-03] MEDS ORDERED: Hydrocortisone Sod Succ/PF 100 mg/2 ml Vial IVP SCH (22:00)
[2019-03-03] MEDS: Benzonatate 100 MG CAP PO SCH (22:08)
[2019-03-03] MEDS: Mirtazapine 15 MG TAB PO SCH (22:08)
[2019-03-03] MEDS: guaiFENesin ER 600 MG TAB PO SCH (22:09)
[2019-03-03] MEDS: Baclofen 10 MG TAB PO SCH (22:09)
[2019-03-03] MEDS: Oseltamivir 75 MG CAP PO SCH (22:09)
--- NOTE | 2019-03-03 23:21 | RAD ---
AP PORTABLE CHEST: 03/03/2019 1402 HOURS COMPARISON: 12/30/2018 FINDINGS: The heart is normal in size. There is no vascular congestion or edema. There are some infiltrative ch anges in the left lower lobe, near the diaphragm, and probably the right as well. No large effusions are seen but small ones could be present. The upper lobes are relatively clear. IMPRESSION: Small basilar infiltrate, particularly on the left. Early infection is possible. POS: HOME
--- NOTE | 2019-03-04 03:11 | HP ---
PRIMARY CARE PHYSICIAN: Radha Bishop DO CHIEF COMPLAINT: Shortness of breath with intermittent fever. HISTORY OF PRESENT ILLNESS: Ms. Broderick is a 63-year-old white female with COPD with continuous tobacco use, and chronic back pain secondary to fibromyalgia, presents today for worsening shortness of breath with intermittent fever. The patient was being treated for flu-like symptoms since after being exposed with a grandson with influenza A. The patient reports she has been sick last week; however, developed fever last Monday associated with vomiting and diarrhea. She developed chest congestion, tightness and wheezing since . She has been using osda-eua-witfmwv analgesics, Mucinex, and her DuoNeb every 4 hours without any relief. Upon arrival at the ED, she had a blood pressure of 116/78, pulse of 109, RR of 19, temperature of 97.9, O2 saturation was 91% on room air. She had a chest x-ray showing right lower lobe infiltrate and chronic lung changes consistent with COPD. Her labs demonstrated WBC of 15, hemoglobin of 12, hematocrit of 39, platelet count of 229. Comprehensive metabolic panel showed sodium of 138, potassium of 3.1, chloride of 105, carbon dioxide of 21, BUN of 15, creatinine of 1.23 with GFR of 44. Lactic acid was 1.6. BNP of 79. The patient was given Zofran, albuterol and DuoNeb and was started on IV fluids. She was also started on Rocephin 2 g per IV and azithromycin p.o. She also received Solu-Medrol 125 mg per IV. Re-evaluation of the patient noted that she is still having significant shortness of breath and requiring oxygen to maintain sats above 94%, the patient is meeting criteria for hospitalization for treatment of community-acquired pneumonia with COPD exacerbation. PAST MEDICAL HISTORY: 1. COPD. 2. Chronic back pain secondary to degenerative disk disease with myelopathy and fibromyalgia. 3. Osteoporosis. 4. Major depression with bipolar disorder. 5. Dysphagia, pending swallowing study. PAST SURGICAL HISTORY: 1. Cholecystectomy. 2. Hysterectomy. 3. Left wrist surgery. 4. Laparoscopic surgery in 2017. 5. Cervical surgery. FAMILY HISTORY: Father from end-stage COPD. SOCIAL HISTORY: The patient is a chronic smoker, used to smoke a pack per day, had got down to 3 cigarettes per day after her hospitalization of COPD, last December. She denies alcohol or drug use. She lives by herself, she has a daughter who lives close by. committed suicide after he was diagnosed with stage IV lung carcinoma in 2013. REVIEW OF SYSTEMS: GENERAL: Reports fever, fatigue, loss of appetite. HEENT: Positive for nasal congestion, positive for postnasal drip. Positive for dry mouth. RESPIRATORY: Positive for shortness of breath, wheezing, chest tightness and cough. CARDIAC: Negative for chest pain. Negative for palpitations. GI: Positive for nausea, vomiting, and diarrhea. GENITOURINARY: Negative for dysuria or hematuria. MUSCULOSKELETAL: Positive for chronic back pain with radiation to both legs, positive for muscle tenderness. PSYCHIATRIC: Positive for depression and anxiety, stable at this time. Denies homicidal or suicidal ideations. INTEGUMENT: No rashes. No lesions. PHYSICAL EXAMINATION: VITAL SIGNS: Blood pressure of 117/67, pulse of 100, temperature of 99.4, O2 saturation 93% on 2 L, RR of 20. GENERAL: The patient is alert, oriented, in mild respiratory distress. HEENT: Normocephalic, atraumatic. Pupils equal, reactive to light. NECK: Supple. Negative for lymphadenopathy. CHEST AND LUNGS: Positive use of accessory muscles, slightly tachypneic, decreased breath sounds throughout lung leigh, positive for wheezing on right upper lung field. CARDIAC: Tachycardic, regular rhythm. Negative for murmur. ABDOMEN: Flat, soft, nontender. Normoactive bowel sounds. EXTREMITIES: Good range of motion. No cyanosis. Negative for clubbing or edema. Negative for Homans sign. PSYCHIATRIC: Appropriate affect and demeanor. LABORATORY DATA: Reviewed. ASSESSMENT: 1. Community-acquired pneumonia, positive for right lower lobe infiltrate. 2. Acute respiratory distress secondary to chronic obstructive pulmonary disease, acute exacerbation. 3. Hypokalemia. 4. Major depression. 5. Bipolar disorder. 6. Chronic back pain with radiculopathy. 7. Fibromyalgia. 8. Tobacco abuse. PLAN: 1. Continue evidence based treatment for COPD exacerbation. 2. Continue IV Rocephin and azithromycin daily for treatment of pneumonia. 3. DVT prophylaxis with Lovenox subcutaneous daily. 4. Continue O2 support, to maintain sats above 96%. 5. Routine morning labs ordered. 6. Smoking cessation counseling. 7. Transfer of care to Dr. Bishop in a.m. CODE STATUS: Full code. Job ID: [id number]
[2019-03-04] MEDS: Dextrose 5 %-0.45 % NaCl 1,000 ML IV SCH ×3 (04:12→11:04)
[2019-03-04 04:28] LABS: Anion Gap 13 mmol/L (10-20); BUN (Urea Nitrogen) 15 mg/dL (9.8-20.1); Calc. Creatinine Clearance 63 mL/min (70-130); Calcium 8.2 mg/dL (7.8-10.44); Carbon Dioxide 19 mmol/L (23-31); Chloride 110 mmol/L (98-107); Estimated GFR-MDRD 51; Glucose 200 mg/dL (80-115); Potassium 3.2 mmol/L (3.5-5.1); Sodium 139 mmol/L (136-145)
[2019-03-04] MEDS: HYDROcodone/Acetaminophen 5/325 mg Tablet PO PRN (05:30)
[2019-03-04] MEDS: methylPREDNISolone Sod Succ 40 MG VIAL IVP SCH ×3 (05:35→23:05)
[2019-03-04 05:49] LABS: Anisocytosis SLIGHT = 6-15 cells (100X) (0-5/hpf); Band 5 % (5-11); Burr Cells SLIGHT = 2-5 cells (100X) (0-1/hpf); Eosinophils 1 % (0-10); Hemoglobin 10.2 g/dL (12.0-16.0); Lymphocytes 15 % (21-51); MDiff Complete? YES; Mean Corpuscular HGB CONC 32.6 g/dL (32.0-36.0); Mean Corpuscular Hemoglobin 27.4 pg (27.0-31.0); Mean Platelet Volume 8.7 fL (7.4-10.4); Monocytes 3 % (0-10); Neutrophil 74 % (42-75); Ovalocytes MODERATE= 6-15 cells (100X) (0-1/hpf); Platelet Count 196 thou/uL (130-400); Platelet Morphology Comment Appears Adequate; RBC Distribution Width 14.5 % (11.5-14.5); Reactive Lymphocytes 1 % (0-10); Red Blood Cell (RBC) Count 3.74 mill/uL (4.20-5.40); Toxic Granulation SLIGHT; White Blood Cell (WBC) Count 9.5 thou/uL (4.8-10.8)
[2019-03-04] MEDS: Floranex Packet PO SCH (08:27)
[2019-03-04] MEDS: Nystatin 500,000 UNITS/5 ML UDCUP SSW SCH ×4 (08:27→20:43)
[2019-03-04] MEDS: Benzonatate 100 MG CAP PO SCH ×3 (08:27→20:41)
[2019-03-04] MEDS: Oseltamivir 75 MG CAP PO SCH ×2 (08:28→20:41)
[2019-03-04] MEDS: guaiFENesin ER 600 MG TAB PO SCH ×2 (08:29→20:41)
[2019-03-04] MEDS: Mometasone/Formoterol 60 PUFF AER INH SCH ×2 (08:43→20:59)
[2019-03-04] MEDS: traMADol HCl 50 MG TAB PO PRN ×2 (11:08→20:42)
[2019-03-04] MEDS: cefTRIAXone\\ROCEPHIN 1 GM in Sodium Chloride 0.9% 100 ML IVPB SCH (15:18)
[2019-03-04] MEDS: Azithromycin 250 MG TAB PO SCH (15:22)
[2019-03-04] MEDS ORDERED: Potassium Chloride 20 MEQ TAB PO SCH (19:15)
[2019-03-04] MEDS: Baclofen 10 MG TAB PO SCH (20:41)
[2019-03-04] MEDS: Mirtazapine 15 MG TAB PO SCH (20:41)
[2019-03-04] MEDS: Vancomycin HCl 750 MG in Sodium Chloride 0.9% 250 ML 250 ML IVPB SCH (20:52)
[2019-03-04] MEDS: Vancomycin HCl 500 MG in Sodium Chloride 0.9% 100 ML IVPB SCH (23:04)
[2019-03-05 05:56] LABS: Anion Gap 17 mmol/L (10-20); BUN (Urea Nitrogen) 15 mg/dL (9.8-20.1); Calc. Creatinine Clearance 61 mL/min (70-130); Calcium 9.1 mg/dL (7.8-10.44); Carbon Dioxide 17 mmol/L (23-31); Chloride 113 mmol/L (98-107); Estimated GFR-MDRD 48; Glucose 120 mg/dL (80-115); Magnesium 2.3 mg/dL (1.6-2.6); Potassium 3.8 mmol/L (3.5-5.1); Sodium 143 mmol/L (136-145)
[2019-03-05] MEDS: methylPREDNISolone Sod Succ 40 MG VIAL IVP SCH ×3 (06:22→22:13)
[2019-03-05] MEDS: traMADol HCl 50 MG TAB PO PRN ×3 (06:23→20:47)
[2019-03-05] MEDS: Potassium Chloride 20 MEQ TAB PO SCH ×2 (08:38→16:28)
[2019-03-05] MEDS: Oseltamivir 75 MG CAP PO SCH ×2 (08:39→20:36)
[2019-03-05] MEDS: Nystatin 500,000 UNITS/5 ML UDCUP SSW SCH ×4 (08:40→20:35)
[2019-03-05] MEDS: guaiFENesin ER 600 MG TAB PO SCH ×2 (08:40→20:35)
[2019-03-05] MEDS: Benzonatate 100 MG CAP PO SCH ×3 (08:40→20:35)
[2019-03-05] MEDS: Mometasone/Formoterol 60 PUFF AER INH SCH ×2 (08:41→20:36)
[2019-03-05] MEDS: Floranex Packet PO SCH (08:41)
[2019-03-05] MEDS: cefTRIAXone\\ROCEPHIN 1 GM in Sodium Chloride 0.9% 100 ML IVPB SCH (15:10)
[2019-03-05] MEDS: Azithromycin 250 MG TAB PO SCH (16:11)
[2019-03-05] MEDS: Mirtazapine 15 MG TAB PO SCH (20:35)
[2019-03-05] MEDS: Baclofen 10 MG TAB PO SCH (20:36)
[2019-03-05] MEDS ORDERED: Vancomycin HCl 1 GM in Sodium Chloride 0.9% 250 ML 250 ML IVPB SCH (21:15)
[2019-03-05] MEDS: Vancomycin HCl 750 MG in Sodium Chloride 0.9% 250 ML 250 ML IVPB SCH (23:18)
[2019-03-06] MEDS: traMADol HCl 50 MG TAB PO PRN ×4 (04:11→21:58)
[2019-03-06] MEDS: methylPREDNISolone Sod Succ 40 MG VIAL IVP SCH ×3 (05:50→21:58)
[2019-03-06] MEDS: Potassium Chloride 20 MEQ TAB PO SCH ×2 (08:37→16:47)
[2019-03-06] MEDS: Oseltamivir 75 MG CAP PO SCH ×2 (08:38→20:07)
[2019-03-06] MEDS: Nystatin 500,000 UNITS/5 ML UDCUP SSW SCH ×4 (08:38→20:06)
[2019-03-06] MEDS: Benzonatate 100 MG CAP PO SCH ×3 (08:38→20:06)
[2019-03-06] MEDS: guaiFENesin ER 600 MG TAB PO SCH ×2 (08:39→20:07)
[2019-03-06] MEDS: Mometasone/Formoterol 60 PUFF AER INH SCH ×2 (08:39→20:17)
[2019-03-06] MEDS: Floranex Packet PO SCH (08:39)
[2019-03-06] MEDS: Vancomycin HCl 1 GM in Sodium Chloride 0.9% 250 ML 250 ML IVPB SCH ×2 (08:53→20:01)
[2019-03-06] MEDS: cefTRIAXone\\ROCEPHIN 1 GM in Sodium Chloride 0.9% 100 ML IVPB SCH (15:56)
[2019-03-06] MEDS: Azithromycin 250 MG TAB PO SCH (15:57)
[2019-03-06] MEDS: Mirtazapine 15 MG TAB PO SCH (20:06)
[2019-03-06] MEDS: Baclofen 10 MG TAB PO SCH (20:07)
[2019-03-07 05:05] LABS: Anion Gap 11 mmol/L (10-20); BUN (Urea Nitrogen) 20 mg/dL (9.8-20.1); Calc. Creatinine Clearance 58 mL/min (70-130); Calcium 8.6 mg/dL (7.8-10.44); Carbon Dioxide 21 mmol/L (23-31); Chloride 113 mmol/L (98-107); Estimated GFR-MDRD 46; Glucose 116 mg/dL (80-115); Potassium 4.1 mmol/L (3.5-5.1); Sodium 141 mmol/L (136-145)
[2019-03-07] MEDS: traMADol HCl 50 MG TAB PO PRN ×2 (08:10→16:24)
[2019-03-07] MEDS: guaiFENesin ER 600 MG TAB PO SCH ×2 (08:13→20:43)
[2019-03-07] MEDS: Potassium Chloride 20 MEQ TAB PO SCH ×2 (08:13→16:21)
[2019-03-07] MEDS: predniSONE 20 MG TAB PO SCH (08:13)
[2019-03-07] MEDS: Benzonatate 100 MG CAP PO SCH ×3 (08:14→20:44)
[2019-03-07] MEDS: Floranex Packet PO SCH (08:14)
[2019-03-07] MEDS: Oseltamivir 75 MG CAP PO SCH ×2 (08:14→20:44)
[2019-03-07] MEDS: Vancomycin HCl 1 GM in Sodium Chloride 0.9% 250 ML 250 ML IVPB SCH (08:23)
[2019-03-07 08:46] LABS: Vancomycin, Trough 31.6 ug/mL
[2019-03-07] MEDS: Mometasone/Formoterol 60 PUFF AER INH SCH ×2 (10:41→20:45)
[2019-03-07] MEDS ORDERED: Nystatin 500,000 UNITS/5 ML UDCUP SSW SCH (10:45)
[2019-03-07] MEDS: Nystatin 500,000 UNITS/5 ML UDCUP SSW SCH ×4 (13:05→20:43)
[2019-03-07] MEDS: cefTRIAXone\\ROCEPHIN 1 GM in Sodium Chloride 0.9% 100 ML IVPB SCH (14:33)
[2019-03-07] MEDS: Azithromycin 250 MG TAB PO SCH (16:21)
[2019-03-07] MEDS: Baclofen 10 MG TAB PO SCH (20:43)
[2019-03-07] MEDS: Mirtazapine 15 MG TAB PO SCH (20:44)
--- NOTE | 2019-03-07 21:02 | RAD ---
CHEST TWO VIEWS: 03/07/19 Comparison is made with the 03/03 study. The left basilar infiltrate is a bit more dense today than it was before. The right base is relativel y clear and the upper lobes are clear. The heart size is normal. There are no large effusions. IMPRESSION: Left basilar pneumonia, slightly denser than previously. POS: HOME
[2019-03-07 21:23] LABS: Vancomycin, Trough 19.4 ug/mL
[2019-03-07] MEDS ORDERED: Vancomycin HCl 1 GM in Sodium Chloride 0.9% 250 ML 250 ML IVPB SCH (22:00)
[2019-03-08] MEDS: traMADol HCl 50 MG TAB PO PRN ×3 (02:50→21:19)
[2019-03-08] MEDS: Potassium Chloride 20 MEQ TAB PO SCH ×2 (08:27→16:51)
[2019-03-08] MEDS: predniSONE 20 MG TAB PO SCH (08:28)
[2019-03-08] MEDS: Floranex Packet PO SCH (09:29)
[2019-03-08] MEDS: Benzonatate 100 MG CAP PO SCH ×3 (09:29→20:55)
[2019-03-08] MEDS: guaiFENesin ER 600 MG TAB PO SCH ×2 (09:30→20:55)
[2019-03-08] MEDS: Nystatin 500,000 UNITS/5 ML UDCUP SSW SCH ×4 (09:30→20:55)
[2019-03-08] MEDS: Oseltamivir 75 MG CAP PO SCH (09:31)
[2019-03-08] MEDS: Mometasone/Formoterol 60 PUFF AER INH SCH ×2 (09:50→20:59)
[2019-03-08] MEDS: cefTRIAXone\\ROCEPHIN 1 GM in Sodium Chloride 0.9% 100 ML IVPB SCH (17:50)
[2019-03-08] MEDS: Mirtazapine 15 MG TAB PO SCH (20:56)
[2019-03-08] MEDS: Baclofen 10 MG TAB PO SCH (20:56)
[2019-03-09] MEDS: traMADol HCl 50 MG TAB PO PRN ×3 (09:11→21:41)
[2019-03-09] MEDS: predniSONE 20 MG TAB PO SCH (09:14)
[2019-03-09] MEDS: Floranex Packet PO SCH (09:15)
[2019-03-09] MEDS: Potassium Chloride 20 MEQ TAB PO SCH ×2 (09:15→17:40)
[2019-03-09] MEDS: Benzonatate 100 MG CAP PO SCH ×3 (09:15→20:39)
[2019-03-09] MEDS: guaiFENesin ER 600 MG TAB PO SCH ×2 (09:15→20:37)
[2019-03-09] MEDS: Nystatin 500,000 UNITS/5 ML UDCUP SSW SCH ×4 (09:16→20:35)
[2019-03-09] MEDS: Mometasone/Formoterol 60 PUFF AER INH SCH ×2 (09:20→20:35)
[2019-03-09] MEDS: Baclofen 10 MG TAB PO SCH (20:38)
[2019-03-09] MEDS: Mirtazapine 15 MG TAB PO SCH (20:38)
[2019-03-09] MEDS: Vancomycin HCl 1 GM in Sodium Chloride 0.9% 250 ML 250 ML IVPB SCH (21:43)
[2019-03-10] MEDS: traMADol HCl 50 MG TAB PO PRN ×4 (05:27→23:54)
[2019-03-10 05:33] LABS: #Basophils 0.1 thou/uL (0.0-0.2); #Lymphocytes 1.7 thou/uL (1.20-3.40); #Monocytes 0.9 thou/uL (0.11-0.59); #Neutrophils 6.7 thou/uL (1.40-6.50); %Basophils 0.9 % (0.0-1.0); %Eosinophils 0.3 % (0.0-10.0); %Lymphocytes 17.9 % (21.0-51.0); %Monocytes 9.3 % (0.0-10.0); %Neutrophils 71.7 % (42.0-75.0); Hemoglobin 11.5 g/dL (12.0-16.0); Mean Corpuscular HGB CONC 30.7 g/dL (32.0-36.0); Mean Corpuscular Hemoglobin 26.1 pg (27.0-31.0); Platelet Count 445 thou/uL (130-400); RBC Distribution Width 15.4 % (11.5-14.5); Red Blood Cell (RBC) Count 4.42 mill/uL (4.20-5.40); White Blood Cell (WBC) Count 9.3 thou/uL (4.8-10.8)
[2019-03-10 05:44] LABS: Anion Gap 13 mmol/L (10-20); BUN (Urea Nitrogen) 21 mg/dL (9.8-20.1); Calc. Creatinine Clearance 61 mL/min (70-130); Calcium 8.7 mg/dL (7.8-10.44); Carbon Dioxide 25 mmol/L (23-31); Chloride 107 mmol/L (98-107); Estimated GFR-MDRD 48; Glucose 79 mg/dL (80-115); Potassium 3.7 mmol/L (3.5-5.1); Sodium 141 mmol/L (136-145)
[2019-03-10] MEDS: Mometasone/Formoterol 60 PUFF AER INH SCH ×2 (08:56→20:24)
[2019-03-10] MEDS: Nystatin 500,000 UNITS/5 ML UDCUP SSW SCH ×4 (08:57→20:21)
[2019-03-10] MEDS: Benzonatate 100 MG CAP PO SCH ×3 (08:58→20:24)
[2019-03-10] MEDS: guaiFENesin ER 600 MG TAB PO SCH ×2 (08:58→20:23)
[2019-03-10] MEDS: predniSONE 20 MG TAB PO SCH (08:59)
[2019-03-10] MEDS: Floranex Packet PO SCH (09:00)
--- NOTE | 2019-03-10 10:03 | RAD ---
CHEST TWO VIEWS: 03/10/2019 COMPARISON: 03/07/2018 FINDINGS: There is still an infiltrate in the left lower lobe. Changes over this three day interval are minimal . No new infiltrates are seen elsewhere. The lungs are mildly hyperexpanded as usual. The heart size remains normal. IMPRESSION: Left basilar infiltrate with minimal change since 03/07/2018. POS: HOME
[2019-03-10 18:22] VITALS: TEMP 98
[2019-03-10] MEDS ORDERED: predniSONE 20 MG TAB PO SCH (19:20)
[2019-03-10] MEDS: Baclofen 10 MG TAB PO SCH (20:21)
[2019-03-10] MEDS: Mirtazapine 15 MG TAB PO SCH (20:22)
[2019-03-10] MEDS: Vancomycin HCl 1 GM in Sodium Chloride 0.9% 250 ML 250 ML IVPB SCH (21:41)
[2019-03-11 06:09] VITALS: BP 115/76
[2019-03-11] MEDS: HYDROcodone/Acetaminophen 5/325 mg Tablet PO PRN (07:50)
[2019-03-11] MEDS: Benzonatate 100 MG CAP PO SCH ×2 (09:11→14:24)
[2019-03-11] MEDS: guaiFENesin ER 600 MG TAB PO SCH (09:11)
[2019-03-11] MEDS: Mometasone/Formoterol 60 PUFF AER INH SCH (09:12)
[2019-03-11] MEDS: Floranex Packet PO SCH (09:14)
[2019-03-11] MEDS ORDERED: Vancomycin HCl 1 GM in Sodium Chloride 0.9% 250 ML 250 ML IVPB SCH (10:00)
[2019-03-11] MEDS ORDERED: Vancomycin HCl 750 MG in Sodium Chloride 0.9% 250 ML 250 ML IVPB SCH (10:00)
[2019-03-11] MEDS: traMADol HCl 50 MG TAB PO PRN (14:24)
--- NOTE | 2019-03-11 20:20 | DIS ---
DATE OF ADMISSION: 03/03/2019 DATE OF DISCHARGE: 03/11/2019 ADMISSION DIAGNOSES: 1. Community-acquired pneumonia. 2. Chronic obstructive pulmonary disease exacerbation. 3. Suspected/probable influenza A infection. 4. Hypokalemia. 5. Dehydration. 6. Acute hypoxic respiratory failure. 7. Tobacco abuse. DISCHARGE DIAGNOSES: 1. Community-acquired pneumonia. 2. Chronic obstructive pulmonary disease exacerbation. 3. Suspected/probable influenza A infection. 4. Hypokalemia. 5. Dehydration. 6. Acute hypoxic respiratory failure. 7. Tobacco abuse. PROCEDURES: 1. Chest x-ray from the date of admission showing small basilar infiltrate, particularly on the left. Early infection is possible. 2. Chest x-ray on March 07, 2019, showing left basilar pneumonia, slightly denser than previous. 3. Chest x-ray on March 10, 2019, shows left basilar infiltrate with minimal change since March 07, 2018. In the body of the report, they note "there is still an infiltrate in the left lower lobe." Changes over this 3-day interval are minimal. No new infiltrates are seen elsewhere. 4. Blood culture x2 negative for growth at 5 days. 5. Influenza A and B from the date of admission negative. 6. White count on admission 15.9 with 71% neutrophils, 3% bands, and 21% lymphocytes. Admission potassium 3.1, improved to as high as 4.1 on March 07 and back to 3.7 on the day prior to discharge. 7. Creatinine 1.23 on admission with improvement at 1.14 on the date of discharge. 8. Lactic acid 1.6. 9. Magnesium 2.3. 10. B-type natriuretic peptide 79. 11. Vancomycin troughs were followed with medication adjustments. 12. Consult physical therapy. HISTORY AND PHYSICAL: Please see dictated report from the date of admission. HOSPITAL COURSE: Ms. Broderick is a 63-year-old female with past medical history of COPD and chronic tobacco abuse, who was exposed to relatives, specifically her grandchildren, who were diagnosed with influenza A approximately 7 to 10 days prior to her presentation to the emergency department here. She had onset of fever, chills, nausea, vomiting, and myalgias for the first few days of the illness that improved. She was given prophylactic oseltamivir, which she was taking once daily, but by the time she received the prescription was already symptomatic. Therefore, she already increased the dosage to twice a day and had 3 days of dosing prior to her admission. In the emergency department, her influenza A and B rapid antigen tests were negative. She had continued worsening of wheezing, shortness of breath, and significant dyspnea on exertion and presented to our emergency department and required nasal cannula to bring up her oxygen sat. In addition, there was a left basilar infiltrate suspected on the chest x-ray. The patient was admitted to the floor and started on Rocephin and azithromycin. Due to the probable recent influenza A, I ordered MRSA coverage with vancomycin. We had pharmacy monitor the troughs and adjust the doses throughout her hospitalization. For the influenza A, the Tamiflu was given and completed. The patient completed a 5-day course of azithromycin, but had very little change in her chest x-ray and still was requiring oxygen, not back to room air despite adequate control of the concurrent COPD exacerbation. Therefore, I spoke with pharmacy and they okayed me to administer Levaquin, which I started the following day. We stopped the Rocephin and continued the vancomycin at that time. A repeat chest x-ray on the day prior to the patient's discharge shows no further worsening and stabilization of the pneumonia with still residual left basilar infiltrate. We will need to follow for complete clearing at 4 to 6 weeks. I have discharged her home with oral Levaquin to complete. She has completed 7 days of the vancomycin, which I feel adequate for the MRSA coverage. The patient had COPD exacerbation on admission and was started on IV Solu- Medrol. She was already on maximum outpatient preventive therapy of Breo, DuoNeb. She, however, did continue to smoke, but was able to discontinue that upon entrance into the hospital and has gone without since her admission and adamantly reassures me that she will stop and does not need nicotine replacement therapy at this time. The wheezing in her chest completely cleared. She was slow to be able to wean off the oxygen and therefore, her stay was extended. We were attempting to get authorization from her insurance for fpc stay, so we could continue to treat her and further wean the O2 along with getting some physical therapy. We did have physical therapy evaluate her on the date prior to her discharge and noted that she had decreased strength, endurance, and stamina. However, the patient desired to go home and we were actually able to wean her off the oxygen on the morning of her discharge. Therefore, she did not require an order for home O2. In the outpatient setting, at followup, I will be arranging for her to see a clerical car checker for full set of PFTs and further recommendations. We did discuss adding a long-acting anticholinergic medication as we are able to get her off the DuoNeb. She would really benefit from pulmonary rehab, but would need a full set of PFTs for that. She can get that when she is stable with Pulmonology. However, she declines any consideration for pulmonary rehab at this time due to cost. The patient with significant hypokalemia upon admission. She has had this in the past. Her magnesium was normal. We repleted this. She was placed on supplementation, which stabilized her level. I would plan to keep her on a low dose at discharge, but she was not tolerating the big tablets and thus we have taken her off. We can consider checking a metabolic profile for potassium levels periodically as an outpatient. The patient initially had some dehydration, which was improved with IV fluid rehydration, which corrected her elevated creatinine. DISPOSITION: Discharged home. CONDITION: Stable. MEDICATIONS: 1. Nystatin 5 mL p.o. q.i.d. for another week. 2. Benzonatate 200 mg p.o. t.i.d. p.r.n. cough. 3. Baclofen 20 mg p.o. at bedtime. 4. Mirtazapine 45 mg p.o. at bedtime. 5. DuoNeb 3 mL nebulized q.i.d. p.r.n. 6. Breo Ellipta one inhalation inhaled daily. 7. Seroquel 600 mg p.o. at bedtime. 8. Pantoprazole 40 mg p.o. daily. 9. Tramadol 50 mg 1 to 2 p.o. q.6 hours p.r.n. pain. 10. Mucinex ER 1200 mg p.o. b.i.d. for another 10 days. 11. Sertraline 100 mg p.o. daily. 12. Prednisone 20 mg taper 2 tablets daily x3 days, then one tablet daily x4 days and half tablet daily x4 days, then stop. 13. Levaquin 750 mg p.o. daily x3 days. 14. Floranex 1 g p.o. daily. FOLLOWUP: With Dr. Radha Bishop, in approximately 7 to 10 days. Job ID: [id number] [facility]
--- NOTE | 2019-03-13 00:12 | PQF ---
[employer] Applications Engineer Crystal Reports Winform ViewerDOMINIC BURRIS NIKO MERCHANT DO [id number] CLINICAL DOCUMENTATION CLARIFICATION FORM: POST DISCHARGE Addendum to original discharge summary date: ____03/11/19 Late entry note date: 03/14/19 DATE: 03/12/2019 ATTN: NIOK MERCHANT DO Please exercise your independent, professional judgment in responding to the clarification form. Clinical indicators are provided on the bottom of this form for your review Please check appropriate box(es): [ x ] Sepsis [ ] Severe sepsis [ ] Septic Shock [ ] Localized infection without sepsis [ ] Other diagnosis [ ] Unable to determine In addition, please specify: Present on Admission (POA): [ x ] Yes [ ] No [ ] Unable to determine For continuity of documentation, please document condition throughout progress notes and discharge summary. Thank You. CLINICAL INDICATORS - SIGNS / SYMPTOMS / LABS Elevated WBC 15.9 on 03/03 - Documented in Laboratory Temperature 100.4 F - Documented in Vital Signs Pulse rate 113 on 03/04, 101 on 03/05 and 111 on 03/11 - Documented in Vital Signs Respiration rate 22 on 03/04 and 24 on 03/08 - Documented in Vital Signs Blood culture *2 negative - Documented in DS on 03/11 by NIKO MERCHANT DO RISK FACTORS Community Acquired Pneumonia - Documented in DS on 03/11 by NIKO MERCHANT DO Acute hypoxic respiratory failure - Documented in DS on 03/11 by NIKO MERCHANT DO COPD exacerbation TREATMENTS: Vancomycin IVPB - Medication report Vancomycin troughs were followed with medication adjustments - Documented in DS on 03/11 by NIKO MERCHANT DO [employer] Applications Engineer Crystal Reports Winform Viewer (This form is maintained as a part of the permanent medical record) 2014 [employer]. All Rights Reserved [email or web address] [not provided] [email or web address]
== END 2019-03-11 15:46 | disposition home or self-care (01) | DRG 871 ==
LOC: BURERS 13:14 → BURMED 15:24
PROVIDERS: ADMIT Family Medicine; ATTEND Family Medicine
DX: A41.9 Sepsis, unspecified organism (principal); J18.9 Pneumonia, unspecified organism; J96.01 Acute respiratory failure with hypoxia; J44.0 Chronic obstructive pulmonary disease with (acute) lower respiratory infection; J44.1 Chronic obstructive pulmonary disease with (acute) exacerbation; G89.29 Other chronic pain; M79.7 Fibromyalgia; F31.9 Bipolar disorder, unspecified; M81.0 Age-related osteoporosis without current pathological fracture; Z90.49 Acquired absence of other specified parts of digestive tract; Z90.710 Acquired absence of both cervix and uterus; F17.210 Nicotine dependence, cigarettes, uncomplicated; E87.6 Hypokalemia
CPT/HCPCS: 36415; 71045; 71046; 80048; 80202; 83605; 83735; 83880; 85025; 87040; 87804; 94640; 94664; 94760; 96365; 96367; 96375; J0696; J1650; J1956; J2405; J2920; J2930; J3370; J3475; J3490; J7050; J7512; J7620; Q0162

== ENCOUNTER 2021-05-12 13:55 | Emergency (ER) | payer MEDICARE | END 2021-05-12 15:00 | disposition home or self-care (01) | LOC: BURERS 13:55 | DX: S93.411A Sprain of calcaneofibular ligament of right ankle, initial encounter (principal); J44.9 Chronic obstructive pulmonary disease, unspecified; F17.210 Nicotine dependence, cigarettes, uncomplicated; X50.1XXA Overexertion from prolonged static or awkward postures, initial encounter ==

== ENCOUNTER 2021-07-08 03:09 | Inpatient (IN) | payer MEDICARE ==
[2021-07-08] MEDS ORDERED: methylPREDNISolone Sod Succ/PF 125 MG/2 ML VIAL ONE ×2 (03:34→03:36)
[2021-07-08] MEDS ORDERED: Albuterol Sulfate 2.5 mg/0.5 ml Neb ONE ×2 (03:34→04:25)
[2021-07-08] MEDS ORDERED: Magnesium 2 GM/50 ML BAG (IN WATER) ONE ×2 (03:34→03:36)
[2021-07-08] MEDS ORDERED: cefTRIAXone\\ROCEPHIN 2 GM VIAL ONE (04:25)
[2021-07-08] MEDS ORDERED: Admixture Fee 1 EACH ONE (04:26)
[2021-07-08] MEDS ORDERED: Sodium Chloride 0.9% 100 ML ONE (04:27)
[2021-07-08 04:33] LABS: #Lymphocytes 0.6 thou/uL (1.20-3.40); #Monocytes 0.6 thou/uL (0.11-0.59); #Neutrophils 16.1 thou/uL (1.40-6.50); %Basophils 0.2 % (0.0-1.0); %Eosinophils 0.1 % (0.0-10.0); %Lymphocytes 3.4 % (21.0-51.0); %Monocytes 3.7 % (0.0-10.0); %Neutrophils 92.7 % (42.0-75.0); Hemoglobin 12.1 g/dL (12.0-16.0); Mean Corpuscular HGB CONC 33.5 g/dL (32.0-36.0); Mean Corpuscular Hemoglobin 28.8 pg (27.0-31.0); Mean Corpuscular Volume 85.8 fL (78.0-98.0); Mean Platelet Volume 7.2 fL (7.4-10.4); Platelet Count 219 thou/uL (130-400); RBC Distribution Width 14.7 % (11.5-14.5); White Blood Cell (WBC) Count 17.4 thou/uL (4.8-10.8)
[2021-07-08 04:47] LABS: ALT (SGPT) 18 U/L (8-55); AST (SGOT) 18 U/L (5-34); Albumin 3.9 g/dL (3.4-4.8); Alkaline Phosphatase 89 U/L (40-110); Anion Gap 14 mmol/L (10-20); BUN (Urea Nitrogen) 12 mg/dL (9.8-20.1); Bilirubin, Total 0.5 mg/dL (0.2-1.2); Calc. Creatinine Clearance 0 mL/min (70-130); Calcium 8.4 mg/dL (7.8-10.44); Carbon Dioxide 23 mmol/L (23-31); Chloride 103 mmol/L (98-107); Glucose 175 mg/dL (80-115); Potassium 3.2 mmol/L (3.5-5.1); Protein, Total 6.9 g/dL (5.8-8.1); Sodium 137 mmol/L (136-145)
[2021-07-08 05:17] LABS: SARS-CoV-2 NAA Rapid Test Not Detected (NotDetected)
[2021-07-08] MEDS ORDERED: Azithromycin 250 MG TAB ONE (05:20)
[2021-07-08] MEDS ORDERED: Albuterol Sulfate 2.5 mg/3 ml Neb NEB PRN (06:30)
[2021-07-08] MEDS ORDERED: Ondansetron ODT 4 MG TAB PO PRN (06:30)
[2021-07-08] MEDS ORDERED: Ondansetron PF 4 MG/2 ML Vial IVP PRN (06:30)
[2021-07-08] MEDS ORDERED: Non-Formulary Item 1 EACH (Albuterol Sulfate [Proventil Hfa] 200 PUFF Inh) IH PRN (06:54)
[2021-07-08] MEDS ORDERED: Non-Formulary Item 1 EACH (Benzonatate [Benzonatate] 200 MG Capsule) PO PRN (06:54)
[2021-07-08 06:55] VITALS: BMI 25.7
[2021-07-08] MEDS ORDERED: Albuterol 200 PUFF (6.7GM INHALER) INH PRN (07:07)
[2021-07-08] MEDS ORDERED: Potassium Chloride 20 MEQ TAB PO SCH (07:30)
[2021-07-08] MEDS: traMADol HCl 50 MG TAB PO SCH ×2 (07:57→20:04)
[2021-07-08] MEDS: Azithromycin 250 MG TAB PO SCH (07:59)
[2021-07-08] MEDS: Dextrose 5 %-0.45 % NaCl 1,000 ML IV SCH ×2 (08:35→16:20)
[2021-07-08] MEDS: Fluticasone/Umeclidin/Vilanter [Trelegy Ellipta 100-62.5-25] INH SCH (08:37)
[2021-07-08] MEDS ORDERED: Floranex 1 GM Packet PO SCH (09:00)
[2021-07-08] MEDS ORDERED: Non-Formulary Item 1 EACH (Fluticasone/Umeclidin/Vilanter [Trelegy Ellipta 100-62.5-25] 1 IH SCH (09:00)
[2021-07-08] MEDS ORDERED: Enoxaparin Sodium 30 MG/0.3 ML SYRINGE SC SCH (09:00)
[2021-07-08] MEDS ORDERED: Azithromycin 250 MG TAB PO SCH (09:00)
[2021-07-08] MEDS ORDERED: SERTRALINE HCL 100 MG PO SCH (09:00)
[2021-07-08] MEDS: Saccharomyces boulardii 250 MG CAP PO SCH (11:08)
[2021-07-08] MEDS: methylPREDNISolone Sod Succ 40 MG VIAL IVP SCH ×2 (12:37→17:07)
[2021-07-08] MEDS ORDERED: methylPREDNISolone Sod Succ/PF 125 MG/2 ML VIAL IVP SCH (14:00)
[2021-07-08] MEDS: Mirtazapine 15 MG TAB PO SCH (20:03)
[2021-07-08] MEDS: Baclofen 10 MG TAB PO PRN (20:12)
[2021-07-08] MEDS ORDERED: MIRTAZAPINE 45 MG PO SCH (21:00)
[2021-07-09] MEDS: methylPREDNISolone Sod Succ 40 MG VIAL IVP SCH ×4 (00:29→18:14)
[2021-07-09] MEDS: Dextrose 5 %-0.45 % NaCl 1,000 ML IV SCH ×3 (00:35→15:59)
[2021-07-09 05:09] LABS: #Lymphocytes 0.9 thou/uL (1.20-3.40); #Monocytes 0.1 thou/uL (0.11-0.59); #Neutrophils 16.1 thou/uL (1.40-6.50); %Basophils 0.1 % (0.0-1.0); %Monocytes 0.6 % (0.0-10.0); %Neutrophils 94.3 % (42.0-75.0); Hemoglobin 10.1 g/dL (12.0-16.0); Mean Corpuscular HGB CONC 33.9 g/dL (32.0-36.0); Mean Corpuscular Hemoglobin 29.1 pg (27.0-31.0); Mean Corpuscular Volume 85.7 fL (78.0-98.0); Mean Platelet Volume 7.3 fL (7.4-10.4); Platelet Count 202 thou/uL (130-400); RBC Distribution Width 14.2 % (11.5-14.5); Red Blood Cell (RBC) Count 3.47 mill/uL (4.20-5.40)
[2021-07-09 05:16] LABS: Anion Gap 12 mmol/L (10-20); BUN (Urea Nitrogen) 12 mg/dL (9.8-20.1); Calc. Creatinine Clearance 73 mL/min (70-130); Carbon Dioxide 22 mmol/L (23-31); Chloride 105 mmol/L (98-107); Glucose 147 mg/dL (80-115); Potassium 4.4 mmol/L (3.5-5.1); Sodium 135 mmol/L (136-145)
[2021-07-09] MEDS ORDERED: cefTRIAXone\\ROCEPHIN 1 GM VIAL ONE (05:40)
[2021-07-09] MEDS: cefTRIAXone\\ROCEPHIN 1 GM in Sodium Chloride 0.9% 100 ML IVPB SCH (05:58)
[2021-07-09] MEDS: Acetaminophen 325 MG TAB PO PRN (06:12)
[2021-07-09] MEDS: Azithromycin 250 MG TAB PO SCH (08:52)
[2021-07-09] MEDS: traMADol HCl 50 MG TAB PO SCH ×2 (08:53→20:45)
[2021-07-09] MEDS: Saccharomyces boulardii 250 MG CAP PO SCH (08:53)
[2021-07-09] MEDS: Enoxaparin Sodium 40 MG/0.4 ML SYRINGE SC SCH (08:55)
[2021-07-09] MEDS: Fluticasone/Umeclidin/Vilanter [Trelegy Ellipta 100-62.5-25] INH SCH (09:02)
[2021-07-09] MEDS: Nicotine 21 MG PATCH TOP SCH (18:14)
[2021-07-09] MEDS: Mirtazapine 15 MG TAB PO SCH (20:44)
[2021-07-09] MEDS: Baclofen 10 MG TAB PO PRN (20:45)
[2021-07-09] MEDS: Benzonatate 100 MG CAP PO PRN (21:13)
[2021-07-10] MEDS: methylPREDNISolone Sod Succ 40 MG VIAL IVP SCH ×4 (00:01→17:43)
[2021-07-10] MEDS: Acetaminophen 325 MG TAB PO PRN (04:56)
[2021-07-10] MEDS: cefTRIAXone\\ROCEPHIN 1 GM in Sodium Chloride 0.9% 100 ML IVPB SCH (06:25)
[2021-07-10] MEDS: Benzonatate 100 MG CAP PO PRN ×3 (08:52→20:37)
[2021-07-10] MEDS: Azithromycin 250 MG TAB PO SCH (08:52)
[2021-07-10] MEDS: Enoxaparin Sodium 40 MG/0.4 ML SYRINGE SC SCH (08:52)
[2021-07-10] MEDS: Saccharomyces boulardii 250 MG CAP PO SCH (08:53)
[2021-07-10] MEDS: traMADol HCl 50 MG TAB PO SCH ×2 (08:53→20:37)
[2021-07-10] MEDS: Fluticasone/Umeclidin/Vilanter [Trelegy Ellipta 100-62.5-25] INH SCH (09:09)
[2021-07-10] MEDS: Nicotine 21 MG PATCH TOP SCH (17:43)
[2021-07-10] MEDS: Baclofen 10 MG TAB PO PRN (22:17)
[2021-07-10] MEDS: Mirtazapine 15 MG TAB PO SCH (22:17)
[2021-07-11] MEDS: methylPREDNISolone Sod Succ 40 MG VIAL IVP SCH ×5 (00:25→23:53)
[2021-07-11] MEDS: Acetaminophen 325 MG TAB PO PRN (06:04)
[2021-07-11] MEDS: cefTRIAXone\\ROCEPHIN 1 GM in Sodium Chloride 0.9% 100 ML IVPB SCH (06:07)
[2021-07-11] MEDS: traMADol HCl 50 MG TAB PO SCH ×2 (08:14→20:28)
[2021-07-11] MEDS: Azithromycin 250 MG TAB PO SCH (08:15)
[2021-07-11] MEDS: Saccharomyces boulardii 250 MG CAP PO SCH (08:15)
[2021-07-11] MEDS: Enoxaparin Sodium 40 MG/0.4 ML SYRINGE SC SCH (08:17)
[2021-07-11] MEDS: Benzonatate 100 MG CAP PO PRN ×2 (08:22→20:58)
[2021-07-11] MEDS: Fluticasone/Umeclidin/Vilanter [Trelegy Ellipta 100-62.5-25] INH SCH (09:32)
[2021-07-11] MEDS: Nicotine 21 MG PATCH TOP SCH (17:52)
[2021-07-11] MEDS: Mirtazapine 15 MG TAB PO SCH (20:48)
[2021-07-11] MEDS: Baclofen 10 MG TAB PO PRN (20:49)
[2021-07-12] MEDS: methylPREDNISolone Sod Succ 40 MG VIAL IVP SCH ×3 (05:34→17:23)
[2021-07-12] MEDS: cefTRIAXone\\ROCEPHIN 1 GM in Sodium Chloride 0.9% 100 ML IVPB SCH (05:34)
[2021-07-12] MEDS: Acetaminophen 325 MG TAB PO PRN (05:59)
[2021-07-12] MEDS: traMADol HCl 50 MG TAB PO SCH ×2 (09:05→20:43)
[2021-07-12] MEDS: Azithromycin 250 MG TAB PO SCH (09:06)
[2021-07-12] MEDS: Enoxaparin Sodium 40 MG/0.4 ML SYRINGE SC SCH (09:07)
[2021-07-12] MEDS: Saccharomyces boulardii 250 MG CAP PO SCH (09:07)
[2021-07-12] MEDS: Fluticasone/Umeclidin/Vilanter [Trelegy Ellipta 100-62.5-25] INH SCH (09:08)
[2021-07-12] MEDS: Benzonatate 100 MG CAP PO PRN ×3 (09:21→20:50)
[2021-07-12] MEDS: Nicotine 21 MG PATCH TOP SCH (17:25)
[2021-07-12] MEDS: Mirtazapine 15 MG TAB PO SCH (20:42)
[2021-07-13] MEDS: methylPREDNISolone Sod Succ 40 MG VIAL IVP SCH ×4 (00:16→17:33)
[2021-07-13] MEDS: cefTRIAXone\\ROCEPHIN 1 GM in Sodium Chloride 0.9% 100 ML IVPB SCH (05:55)
[2021-07-13] MEDS: Benzonatate 100 MG CAP PO PRN ×2 (08:46→17:32)
[2021-07-13] MEDS: traMADol HCl 50 MG TAB PO SCH (08:47)
[2021-07-13] MEDS: Saccharomyces boulardii 250 MG CAP PO SCH (08:47)
[2021-07-13] MEDS: Azithromycin 250 MG TAB PO SCH (08:47)
[2021-07-13] MEDS: Enoxaparin Sodium 40 MG/0.4 ML SYRINGE SC SCH (08:48)
[2021-07-13] MEDS: Fluticasone/Umeclidin/Vilanter [Trelegy Ellipta 100-62.5-25] INH SCH (13:37)
[2021-07-13] MEDS: Nicotine 21 MG PATCH TOP SCH (17:33)
[2021-07-13 19:41] VITALS: BP 154/96; TEMP 99.2
[2021-07-14] MEDS ORDERED: cefTRIAXone\\ROCEPHIN 1 GM in Sodium Chloride 0.9% 100 ML IVPB SCH (06:00)
== END 2021-07-13 19:00 | disposition home or self-care (01) | DRG 190 ==
LOC: BURERS 03:09 → BURMED 04:59
PROVIDERS: ADMIT Family Medicine; ATTEND Family Medicine
DX: J44.1 Chronic obstructive pulmonary disease with (acute) exacerbation (principal); J18.9 Pneumonia, unspecified organism; J44.0 Chronic obstructive pulmonary disease with (acute) lower respiratory infection; G89.4 Chronic pain syndrome; K21.9 Gastro-esophageal reflux disease without esophagitis; F31.9 Bipolar disorder, unspecified; F17.210 Nicotine dependence, cigarettes, uncomplicated; Z20.822 Contact with and (suspected) exposure to COVID-19; E87.6 Hypokalemia; Z90.49 Acquired absence of other specified parts of digestive tract; Z90.710 Acquired absence of both cervix and uterus; Z79.51 Long term (current) use of inhaled steroids; Z79.899 Other long term (current) drug therapy; Z91.040 Latex allergy status; Z88.8 Allergy status to other drugs, medicaments and biological substances; Z88.1 Allergy status to other antibiotic agents
CPT/HCPCS: 36415; 71045; 71250; 80048; 80053; 85025; 87040; 94640; 94760; 96365; 96375; J0696; J1650; J2920; J2930; J3475; J3490; J7042; J7611; J7620